=== PATIENT | female | born 1935 | race Hispanic/Latino ===

== ENCOUNTER 2021-01-02 12:49 | Emergency (ER) | payer MEDICARE ==
[~2021-01-02] VITALS: Ht 149.9 cm; Wt 77.1 kg
[2021-01-02] MEDS ORDERED: ACIDOPHILUS1 EAC1 PO (13:16)
[2021-01-02] MEDS ORDERED: CLINDAMYCIN HC150 MG PO (13:16)
== END 2021-01-02 14:00 | disposition home or self-care (01) ==
LOC: ER 13:57
DX: S90.811A Abrasion, right foot, initial encounter (principal); W50.4XXA Accidental scratch by another person, initial encounter; Y92.008 Other place in unspecified non-institutional (private) residence as the place of occurrence of the external cause; I10 Essential (primary) hypertension; E11.65 Type 2 diabetes mellitus with hyperglycemia; E78.5 Hyperlipidemia, unspecified
CPT/HCPCS: 36415; 82948; 99283